=== PATIENT | male | born 1965 | race Caucasian/White ===

== ENCOUNTER 2016-07-13 14:34 | Emergency (ER) | payer BC ==
[~2016-07-13 14:34] MED LIST: AMOXICILLIN 50500 MG PO; BACTRIM DS 8001 TA1 PO; BACTRIM DS 8001 TAB PO; CEPHALEXIN500 M1 PO; ED SEPTRA/2 TAB/BOTT PO; GLUCOPHAGE PO; IBUPROFEN200 M1 PO; METFORMIN500 MG PO; METFORMIN850 MG PO; NORCO 325 MG-51 TAB PO; NORCO 325 MG-7.1 TA1 PO; VIBRAMYCIN100 MG PO
[2016-07-13] MEDS ORDERED: CEPHALEXIN500 M1 PO (15:16)
== END 2016-07-13 15:39 | disposition home or self-care (01) ==
LOC: ED 14:34
DX: L02.01 Cutaneous abscess of face (principal)